=== PATIENT | female | born 1955 | race Native Hawaiian/Other Pacific Islander ===

== ENCOUNTER 2016-06-14 20:30 | Emergency (ER) | payer MEDICARE, OTHER ==
[2016-06-14] MEDS ORDERED: ACETAMINOPHEN 325 MG TABLET PO STA (21:36)
[2016-06-14] MEDS ORDERED: CEPHALEXIN 250 MG CAPSULE PO STA (21:37)
[2016-06-14] MEDS ORDERED: CEPHALEXIN 250 MG CAPSULE PO ONE (21:40)
[2016-06-14] MEDS ORDERED: ACETAMINOPHEN 325 MG TABLET PO ONE (21:41)
== END 2016-06-14 22:32 | disposition home or self-care (01) ==
DX: N10 Acute pyelonephritis (principal); R05 Cough; C56.9 Malignant neoplasm of unspecified ovary; I10 Essential (primary) hypertension; E11.42 Type 2 diabetes mellitus with diabetic polyneuropathy; Z79.4 Long term (current) use of insulin; Z79.82 Long term (current) use of aspirin
CPT/HCPCS: 36415; 71020; 80053; 81001; 83605; 83690; 85025; 99283; A9270

== ENCOUNTER 2016-07-16 07:10 | Outpatient (CLI) | payer MEDICARE, OTHER | END 2016-07-16 07:11 | disposition home or self-care (01) | DX: R10.11 Right upper quadrant pain (principal); Z85.43 Personal history of malignant neoplasm of ovary ==

== ENCOUNTER 2016-07-24 10:25 | Outpatient (CLI) | payer MEDICARE, OTHER ==
[2016-07-24] MEDS ORDERED: SODIUM CHLORIDE 0.9% IV ONE (14:28)
[2016-07-24] MEDS ORDERED: SINCALIDE IV ONE (14:28)
== END 2016-07-24 10:26 | disposition home or self-care (01) ==
DX: R10.11 Right upper quadrant pain (principal); Z85.43 Personal history of malignant neoplasm of ovary
CPT/HCPCS: 78227; A9537

== ENCOUNTER 2016-09-03 11:15 | Outpatient (CLI) | payer MEDICARE, OTHER ==
--- NOTE | 2016-09-05 06:47 | CONSULTATION NOTE ---
DATE OF CONSULTATION: 09/03/2016 00:00:00 REFERRING PROVIDER: Mayo Meyer MD, PhD TIME OF VISIT 11:15-12:15. TOPIC: Initial palliative care consult. Thank you, Dr. Meyer, for asking the Palliative Care Consult Service to be involved in the care of yo ur patient. I am asked to provide support, particularly around goals of care, end of life planning, a nd pain and symptom management. History obtained from patient, , and records. BRIEF HISTORY OF PRESENT ILLNESS: This is a 61-year-old woman who has a long history with ovarian can cer. She was first initially diagnosed in 1997. At that point in time, she underwent a total abdomina l hysterectomy and bilateral salpingo-oophorectomy. Over the subsequent years, she had multiple relap ses and recurrent chemotherapy with carboplatin and Taxol intermittently. She had her last round of c arbo/Taxol and Avastin in 09/2015 with progression. At this point in time, in 08/2015, she presented with peritoneal carcinomatosis, adenopathy, and lung nodules. She received Doxil/Avastin with x3 cycl es with progression, then topotecan/Avastin with stable disease, and then transitioned to maintenance olaparib from 06/18/2016, and most recently switched to niraparib on 07/24/2016. Today they have sto pped her treatments. She continues to have profound weakness, increasing pain, poor intake, intermittent and recurrent bon e marrow suppression, dizziness, tachycardia, and nausea. She has had greater than a 40-pound weight loss in the past few months and increasing left supraclavicular adenopathy and right axilla adenopath y. It was noted she has obvious disease progression. She does have some other chemotherapeutic option s but also the option to choose just to focus on comfort and no further active treatment. This is our first meeting to review goals of care. She is aware of her prognosis, particularly if choosing no fu rther treatment, is less than 6 months. SYMPTOM BURDEN: She does present with pain, particularly in the lower back area, a 6/10 to 8/10 with increasing standing. It is relieved with sitting and pressure relief. She reports she has no energy, is unable to eat, has early satiety. She has most recently been worked up for abdominal pain with neg ative for gallstones or pancreatitis. Her abdominal pain has since resolved and improved. She has no appetite. She has taste changes. She has dizziness. She has had recurrent UTIs, which has complicated the picture, as far as her feeling poorly. She does get short of breath with activity. She does perc eive herself as somewhat depressed and her quality of life as poor currently. PAST MEDICAL HISTORY Includes: 1. Diabetes. 2. Recurrent anemia secondary to bone marrow suppression from her chemotherapies. 3. Recurrent UTIs. MEDICATION ALLERGIES: LISINOPRIL CAUSES COUGH. CURRENT MEDICATIONS 1. Lantus 20 units. 2. Ascorbic acid 500 mg daily. 3. Aspirin 81 mg daily. 4. Atorvastatin 40 mg daily. 5. Calcium 1000 mg daily. 6. Docusate sodium 100 mg daily. 7. esomeprazole 20 mg daily. 8. Hydrocodone/acetaminophen 5/325 at 1 tab p.r.n. 9. Losartan 25 mg daily. 10. Metoclopramide 10 mg every 6 hours as needed for nausea and vomiting. 11. Multivitamin daily. 12. Ondansetron 8 mg every 8 hours as needed for nausea or vomiting. CODE STATUS: Patient does not have any advanced care directives. BRIEF SOCIAL HISTORY: Patient met her in the [facility]; they have been for 43 years and have been on [facility] since the . 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 She does have 1 son and 1 daughter who have been not been involved i n her care. She and her are not connected into any kind of spiritual community. She, though, has a history of Catholicism. They are quite isolated from family. Her family is back in the [facility]. She last visited there in 2014. She does have 11 brothers and sisters. Marital status: . Use of alcohol/tobacco: None. FAMILY HISTORY: She did have one brother of diabetes, unknown what her parents of, and no ca ncer diagnoses. PERFORMANCE STATUS: Patient has been limited by her escalating back pain. She is unable to stand for long periods of time. She does have a rolling chair that she likes the use in the house. She does fat igue quite easily. She is able to independently bathe, though her is assisting with most ADLs and IADLs. She did spend the majority of her time in bed or in the recliner. I would put her at a [facility] performance status of 50%. REVIEW OF SYSTEMS HEENT: Denies any trouble swallowing. CARDIOVASCULAR: Denies chest pain. Does have exertional dyspnea. RESPIRATORY: Does get short of breath with activity. GASTROINTESTINAL: Her bowels have been managing on a regular basis. She has poor appetite. She eats s mall amounts of food. She has early satiety. She does have intermittent nausea and taste changes. GENITOURINARY: She does have frequency, has had recurrent UTIs. MUSCULOSKELETAL: She has been losing weight with muscle weakness. INTEGUMENTARY: No pruritus. NEUROLOGIC: Denies memory issues; does present as alert and oriented. Her voice is quite soft. She do es have numbness and tingling as a residual of chemotherapy. PSYCHIATRIC: She is feeling quite sad, somewhat overwhelmed. ENDOCRINE: History of diabetes since 2006. HEMATOLOGIC/IMMUNOLOGIC: She has been requiring recurrent transfusions; she is receiving one currentl y. Her count on the 9th was 22.1. white count 7.3. Her creatinine is 1.4. GFR 38. Iron 18. TIBC 192, saturation 9, transferrin 137, ferritin 5142. LDH is 176. CA-125 is 108.9, this has increased from t he 15th from 80.2. PHYSICAL EXAMINATION GENERAL APPEARANCE: She does appear quite fatigued, difficulty making eye contact. Her voice is quite soft. She appears somewhat withdrawn. HEENT: Eyes normal on inspection. ENT: Mucous membranes without candidiasis. NECK: Trachea midline; does have swelling of the chest and axilla area. RESPIRATORY: Her breath sounds are clear. CARDIOVASCULAR: Her temperature is 36.7, pulse 101, blood pressure 145/90, respiratory rate 24. ABDOMEN: Quite rounded. Bowel tones distant. SKIN: She does have alopecia. EXTREMITIES: No lower extremity edema noted. PALLIATIVE CARE DISCUSSION/WHO IS PRESENT: Myself, the patient, and her , Duane. We did discuss the sadness they have over her ongoing decline, poor quality of life, and poor energy. Her i s much concerned over her pain and suffering, and the patient feels very bad about being a burden. Th e is able to express his understanding of the seriousness of the illness and that she has les s than 6 months to live, and is willing to have conversation regarding the continuum of care and supp ort. The patient remains quite hesitant. She has been with Dr. Meyer for over 12 years, is quite hope ful there may be something more to offer; but on the other hand is quite tired of feeling poorly and overwhelmed with her last few months of chemotherapy. They have no advanced directives in place; have not had any conversation. They are dependent on other , as far as support; are expressing their sadness and vulnerability, given the current situation. Time was spent just building rapport, particularly in the context of her recent bad news. Her strengt hs come from leaning on each other and are both appropriately tearful through the conversation. IMPRESSION: This is a ericka 61-year-old German woman with a long journey with her ovarian cancer. Now with disease that continues to progress despite treatment. She does present with high symptom bur den of back pain, fatigue, anemia, poor appetite, a 40-pound weight loss, and underlying depression a nd anxiety. She and her are just beginning to explore defining their goals of care and what i s most important in this current time. RECOMMENDATIONS/COUNSELING DONE 1. Back pain, most likely it is related to progressive disease. Patient hesitant to use her opioids. She does get some relief with it, though. Did discuss as far as improving her functional status and d ecreasing her fatigue to adequately treat her pain. I did suggest that we start with short-acting oxy codone 5 mg 1 tab 4 times a day, and we will titrate from there. I did ask them to keep a log balanci ng the effects of sedation and pain relief. I did encourage them to use her ondansetron if she gets a ny nausea. 2. Constipation risk with opioids. Patient does have intermittent constipation and hard stool. I did encourage to start with MiraLax 1 capful daily and add senna 1-2 tabs for a bowel movement every 24-4 8 hours. 3. Anorexia. I would be tempted to start patient on Decadron, though she is diabetic. She is coming o ff her oral chemotherapy with taste changes. We will focus on frequent small meals. She had disliked a supplement in the past because it gave her diarrhea. I did review using it in smaller amounts more frequently may improve her ability to tolerate this. I did encourage her to maximize fluids. She has been drinking lots of water. I encouraged her to drink calorie-laden fluids versus just plain water. 4. Advanced care planning. I did introduce continuum of care including palliative and hospice care re garding ongoing support, particularly if their focus is going to be on comfort. I did provide them wi th [facility] and a POLST for further conversation. I did set a followup time on Saturday. Time spent 60 minutes, with greater than 50% of this done in counseling and coordination of care, exp kaylah goals of care, high symptom burden, counseling and instruction on opioid use and safety, and a nticipatory guidance. JOB #: [id number] EXT JOB #:[id number]
== END 2016-09-03 11:16 | disposition home or self-care (01) ==
LOC: PC 11:15
PROVIDERS: ATTEND Nurse Practitioner Adult Health
DX: Z51.5 Encounter for palliative care (principal); M54.9 Dorsalgia, unspecified; K59.00 Constipation, unspecified; R63.0 Anorexia; C80.1 Malignant (primary) neoplasm, unspecified; C78.6 Secondary malignant neoplasm of retroperitoneum and peritoneum; R53.1 Weakness; R11.0 Nausea; R53.83 Other fatigue; R42 Dizziness and giddiness; D64.81 Anemia due to antineoplastic chemotherapy; T45.1X5D Adverse effect of antineoplastic and immunosuppressive drugs, subsequent encounter; Z87.440 Personal history of urinary (tract) infections
CPT/HCPCS: 99205

== ENCOUNTER 2016-09-07 09:19 | Outpatient (CLI) | payer MEDICARE, OTHER ==
--- NOTE | 2016-09-09 11:39 | CONSULTATION NOTE ---
DATE OF CONSULTATION: 09/07/2016 00:00:00 REQUESTING PROVIDER: Dr. Mayo Meyer. TIME OF VISIT: 9:15 to 10 a.m. TOPIC: Followup palliative care consult. Thank you, Dr. Meyer, for asking the palliative care consult service to be involved in the care of yo ur patient. I am asked to provide support, particularly around goals of care, end of life planning, p ain and symptom management. BRIEF HISTORY OF PRESENT ILLNESS: This is a 61-year-old woman with longstanding ovarian cancer initia lly diagnosed in 1997. At that point in time, she underwent a total abdominal hysterectomy and bilate ral salpingo-oophorectomy. She currently is on a break from chemotherapy. She had been having pancyto penia, increased weakness, and progressive disease. She is much improved from earlier in the week. She has received 2 units of packed red blood cells, is receiving an iron transfusion during her visit. Her pain is currently controlled on her current joann men, which is oxycodone 5 mg 4 times a day. She has not had any undue side effects as far as sedation and has had good pain relief to the point where she is able to stand and walk better and reports 0/1 0 pain. She does have poor activity tolerance. She continues with nausea in the morning, but uses ond ansetron. Does not need it through the day. She did have one episode though of vomiting, but attribut es it to her food choice of corned beef. She has not had any further abdominal pain. She is currently on antibiotic for urinary tract infection, so has had some intermittent diarrhea and loose stools, s o has not needed to use the MiraLax at this point in time. MEDICATIONS: She has had her Lantus decreased to 10 units. CODE STATUS: THE PATIENT REMAINS A FULL CODE. PLEASE SEE PALLIATIVE CARE DISCUSSION. BRIEF SOCIAL HISTORY: She and her have been for 43 years. He does tend to be the one that interprets her medical information, as well as medical decision making. She is quite differentia l to this and this is fine with her. She is more than willing though to engage in conversation and an swer questions for me today. She and her are not connected to any spiritual community, have m inimal family support. Her family is back in the [facility] where she has 11 brothers and sisters. PERFORMANCE STATUS: The patient has been limited by escalating back pain. She is not able to ambulate and sits to cook. She still fatigues quite easily. She is able to independently bathe. I would put h er actually at a palliative care performance status of improved to 60%. REVIEW OF SYSTEMS HEENT: The patient denies trouble swallowing. CARDIOVASCULAR: Denies chest pain. RESPIRATORY: Shortness of breath with activity. GASTROINTESTINAL: Continues with poor appetite, though has had some improvement in intake. She report s she has gained 2 pounds. She has had one episode of vomiting. She has had some diarrhea with her an tibiotics. GENITOURINARY: She is currently on antibiotic for a UTI. She denies incontinence, but does have frequ ency. MUSCULOSKELETAL: She is weak. INTEGUMENTARY: No pruritus. NEUROLOGIC: Her voice is quite soft. PSYCHIATRIC: She is in a better mood today, a little bit more upbeat. She is feeling better. Her pain is controlled. ENDOCRINE: She reports her blood sugar yesterday was 94, this morning 154, but she had lasagna last n ight. HEMATOLOGIC/IMMUNOLOGIC: She is feeling better after her blood transfusion. PHYSICAL EXAMINATION GENERAL APPEARANCE: She does appear a little bit more energetic and she is making eye contact with me today. Her voice is soft. HEENT: Eyes are normal on inspection. Mucous membranes are without candidiasis. NECK: She does have a palpable, probably 3-4 cm node just below her left neck area. It is nontender t o palpation. Some swelling under her left axilla. RESPIRATORY: Her breath sounds are diminished, but clear. CARDIOVASCULAR: Her temperature is 36.9. She remains tachycardic at 106, blood pressure 116/54. Her O 2 saturations are at 99%. SKIN: She is wearing a cap for alopecia. EXTREMITIES: No lower extremity edema. She is moving much easier today. PALLIATIVE CARE DISCUSSION: Who is present, myself, the patient, and her , Duane. They have not done any advanced care planning and find it very difficult to talk about this topic. We did discuss at the minimum to complete a durable power of medical research attorney and is defaulting most often to Duane hilliard s far as the decision maker, but if he were not available, will list her daughter. In discussing what is most important to her, she is quite happy to have a break for a few weeks. She is actually planni ng to continue with chemotherapy. What worries her most is leaving Duane behind. She has some insight to the seriousness of her illness and does understand that Dr. Meyer talked to her about there are mo re limited options, but she still perceives that she would continue with treatment at this point. I i ntroduce the concept of weighing benefits and burdens that sometimes the burden of chemotherapy is hi gher than the burden of disease. She is feeling much better off her chemotherapy. She is getting her taste back. She has had transfusions. Her energy is back and now we have her pain controlled. We did discuss end of life options at the point that she no longer is able to have chemotherapy or chooses n ot to have chemotherapy around the role of hospice as far as support. She does want to be comfortable at end of life. We talked about dying at home and what that might look like. This is a very difficul t conversation for her, both given culturally and religiously. In talking to Duane and Dana about CODE STATUS, at this point in time they are quite conflicted. Duane' s experience as a pediatric oncologist, first aid, perceives resuscitation as a valid intervention. Did scar gonsalez explore, just given the seriousness of the illness and decision making regarding reversible proc esses versus not reversible, and the decisions they might be facing in the future, what the role of Beverly PEREZ is. At this point in time, she would be a FULL CODE, FULL TREATMENT, but are open to continuing to have this conversation. We did introduce [facility], though given who she is culturally, this is quite complicated for her. Did discuss that what we would do is continue talking about benefits and b urdens as they come up, recognizing that what is most important is that she is kept comfortable and t reated with respect. Duane does admit to just the complexity of all of this, and this is their first c onversation about any advanced directive, so we will continue this in the future as allowed. The hannah ent was finding it quite easy and willing to talk to me in the future. I did leave it open for any qu estions. IMPRESSION: This is a ericka 61-year-old woman, Pakistani, with a long journey with ovarian cancer wit h progressive disease. Her symptom burden has improved today with improvement of her back pain and fa tigue. She is eating a little bit better, does seem a little bit brighter. She and her are ju st beginning to explore and define their goals of care. At this point in time, she is thankful to hav e a break from treatment, but appears that she may continue on. RECOMMENDATIONS/COUNSELING DONE 1. Back pain, most likely of neoplastic origin. The patient is taking her oxycodone as instructed 4 t imes a day with good relief. She is tolerating it without side effects. We did discuss if she needed increased dosing, to go ahead and take 2 tabs at a time. They are keeping a log. 2. Constipation. She currently is having loose stools, most likely attributed to her antibiotics curr ently. We did review though after antibiotics are done, to be able to still monitor and institute a b owel program of MiraLax and senna for breakthrough constipation. 3. Anorexia. It does appear that she is improved with taste changes and some improvement in eating. S he has had a 2 pound weight gain, certainly this could be ascites as well though, but she does appear to be doing a little bit better and her fluid status is improved. 4. Advanced care planning. Did introduce the POLST form. At this point in time she wants to be a FULL CODE, FULL TREATMENT. Introduce advanced care planning in the future, the continuum that includes ho spice care, as well as needing a durable power of medical research attorney on record. TIME SPENT: 45 minutes with greater than 50% of this done in counseling and coordination of care, exp kaylah goals of care, addressing her symptom burden and anticipatory guidance. JOB #: [id number] EXT JOB #:[id number]
== END 2016-09-07 09:20 | disposition home or self-care (01) ==
LOC: PC 09:19
PROVIDERS: ATTEND Nurse Practitioner Adult Health
DX: Z51.5 Encounter for palliative care (principal); M54.9 Dorsalgia, unspecified; R53.83 Other fatigue; R53.1 Weakness; K59.00 Constipation, unspecified; R63.0 Anorexia; C56.9 Malignant neoplasm of unspecified ovary; N39.0 Urinary tract infection, site not specified; D64.9 Anemia, unspecified; K52.1 Toxic gastroenteritis and colitis; T36.95XA Adverse effect of unspecified systemic antibiotic, initial encounter
CPT/HCPCS: 99215

== ENCOUNTER 2016-09-14 08:57 | Outpatient (CLI) | payer MEDICARE, OTHER ==
--- NOTE | 2016-09-17 07:05 | CONSULTATION NOTE ---
DATE OF CONSULTATION: 09/14/2016 00:00:00 REQUESTING PROVIDER: Mayo Meyer MD, PhD TIME OF VISIT: 9 to 9:45. TOPIC: Followup palliative care consult. Thank you, Dr. Meyer, for asking the Palliative Care Consult Service to be involved in care of your patient. I am asked to provide support for pain and symptom management, and end-of-life and transition care planning. BRIEF HISTORY OF PRESENT ILLNESS: This is a 61-year-old woman, with longstanding ovarian cancer who is currently on a break from chemotherapy secondary to having pancytopenia, increased weakness, and progressive disease. She has received 2 units of red blood cells and is now receiving weekly iron transfusions. She reports her pain continues to be controlled on her current regimen, which is oxycodone 5 mg 3-4 times a day. She has tolerated this well. She reports her pain today at a 1/10. She does have fatigue that she reports as a 5/10, as well as drowsiness and tiredness at 5/10. She denies any further nausea. Her most pressing symptoms are a lack of appetite at 7/10, and shortness of breath at 7/10. She complains today of continued symptoms of a urinary tract infection with pain and burning and difficulty with some urinary retention and emptying her bladder. ALLERGIES: LISINOPRIL. CURRENT MEDICATION LIST Includes: 1. Lantus 10 units. 2. Ascorbic acid 500 mg daily. 3. Aspirin 81 mg daily. 4. Atorvastatin 40 mg daily. 5. Calcium 1000 mg daily. 6. Docusate sodium 100 mg daily. 7. MiraLax 17 grams half cap to full cap daily. 8. Esomeprazole 20 mg daily. 9. Oxycodone 5 mg q.i.d. 10. Losartan 25 mg daily. 11. Metoclopramide 10 mg every 6 hours as needed for nausea and vomiting. 12. Multivitamin daily. 13. Ondansetron 8 mg every 8 hours as needed for nausea and vomiting. CODE STATUS: The patient remains a FULL CODE. Please see palliative care discussion. BRIEF SOCIAL HISTORY: She and her have been for 43 years. She is the one who provides most of her advocacy and oversight for medical information, as well as medical decision making; she is quite deferential to this, and this is fine with her. She is Denominational but not connected to any spiritual community here. Her family is back in the [facility], which she is in contact with frequently. She does have 2 children, but it does not appear they are actively involved in her care. PERFORMANCE STATUS: The patient has been a bit better with her back pain. She has been cooking a little bit more, though she still continues to fatigue easily. She is able to independently bathe. I would put her at a performance status of 60%. REVIEW OF SYSTEMS All are negative except for: RESPIRATORY: She reports shortness of breath with activity but denies it at rest. GASTROINTESTINAL: She continues with poor appetite and weight loss. GENITOURINARY: She had been on an antibiotic for a UTI. She denies incontinence but is having some trouble with frequency and difficulty with starting a stream. ENDOCRINE: She reports her blood sugars are within normal range for her. HEMATOLOGIC/IMMUNOLOGIC: She continues getting iron transfusions. PHYSICAL EXAMINATION GENERAL APPEARANCE: She does appear a little bit more relaxed with me today, making good eye contact. Her voice is soft. HEENT: Eyes are normal on inspection. Mucous membranes are moist without candidiasis. NECK: She does have a palpable 3 to 4 cm node in her left neck area, it is nontender, and some swelling under her left axilla. RESPIRATORY: Her breath sounds are diminished but clear. CARDIOVASCULAR: Her pulse is 98, blood pressure 129/60, respiratory rate at 16. SKIN: Somewhat dry. EXTREMITIES: No lower extremity edema. She is moving a little easier today. PALLIATIVE CARE DISCUSSION/WHO IS PRESENT: Myself, the patient, and her , Duane. They are willing to do a durable power of medical compliance attorney. At this point in time, they do not have any witnesses and did not want to take it to the bank so "that they would know their business." I will make contact with Sara Jermaine connelly, to see if she can help them assign that next Saturday. The focus today for most of their goals is to try and see how she can eat better. We did discuss strategies at length, but also suggested medications, and we will go ahead and start her on a Decadron. I did follow up on their concerns about plans and did provide them the resource [facility] , as well as discussion on how to weigh benefits and burdens of following through and making pre-plans. They continue to be quite reticent to visit, though recognizing that decision is facing them in the future. We will continue to revisit this as allowed by both the patient and the . It is quite complex, given her culture background and her long journey with her ovarian cancer. IMPRESSION: This is a ericka 61-year-old Filipina woman with a long journey with ovarian cancer, now presenting with progressive disease. She does present with symptoms of a urinary tract infection again; we will get a specimen. She is doing better with her pain and fatigue, though intake and appetite remain problematic. She and her are continuing to explore and define their goals of care. RECOMMENDATIONS/COUNSELING DONE 1. Back pain, most likely of neoplastic origin. She is taking oxycodone up to 4 times a day at 5 mg with good relief, is tolerating this without side effects. If needed, she can go ahead and take 2 tabs at a time; they are keeping a log. 2. Constipation. She is using her MiraLax and senna appropriately. 3. Anorexia. They are interested in trialing Decadron 4 mg tabs 1 tab daily with food. Instructions were given how to use this. 4. Symptoms of urinary tract infection. She has recently been treated. We will try to get a specimen with a C and S, to make sure we are treating the right organism. 5. Continue advance care planning. Continue to discuss what is most important to them, as well as follow up on DPOA and POLST form in the future. Time spent 45 minutes with 50% of this done in counseling regarding weighing benefits and burdens of steroids use; she is instructed to watch her blood sugars, also instructed on strategies on how to increase her intake, as well as continued management of her pain. ADDENDUM: Patient urine not strongly positive and no C &S, when followed up with patient today reports her symptoms are better, no burning, difficulty voiding, or further concerns. No fever, chills, appetite she feels improved "hungry all the time", does not feel it is much better. Agreed will order Bactrim DS BID for 5 days, patient to start if symptoms recur. JOB #: [id number] EXT JOB #:[id number] VIKY
== END 2016-09-14 08:58 | disposition home or self-care (01) ==
LOC: PC 08:57
PROVIDERS: ATTEND Nurse Practitioner Adult Health
DX: Z51.5 Encounter for palliative care (principal); M54.9 Dorsalgia, unspecified; Z79.891 Long term (current) use of opiate analgesic; K59.00 Constipation, unspecified; R63.0 Anorexia; R39.9 Unspecified symptoms and signs involving the genitourinary system; D64.9 Anemia, unspecified; R53.83 Other fatigue; R06.02 Shortness of breath; C56.9 Malignant neoplasm of unspecified ovary; Z79.899 Other long term (current) drug therapy
CPT/HCPCS: 99215

== ENCOUNTER 2016-10-19 08:15 | Outpatient (CLI) | payer MEDICARE, OTHER | END 2016-10-19 08:16 | disposition home or self-care (01) | LOC: PC 08:15 | PROVIDERS: ATTEND Nurse Practitioner Adult Health | DX: Z53.9 Procedure and treatment not carried out, unspecified reason (principal) ==

== ENCOUNTER 2016-10-19 08:45 | Outpatient (CLI) | payer MEDICARE, OTHER ==
--- NOTE | 2016-10-19 12:34 | PROVIDER PROGRESS NOTE ---
Palliative Care Follow Up - Referral Referring Provider: Dr. Meyer Time of Visit: [id number] [place] [facility] [place] Reason: Fatigue - Information Sources History obtained from: Patient, Family ( Duane) Exam limitations: Clinical condition (patient with some STM issues, was very confused last night) - History of Present Illness Update Brief HPI Update: This is a ericka 61 year old [place] woamn wiht advanced ovarian cancer with peritoneal carcinomatosis, adenopathy, and lung mets. She has had chemotherapy on and off after surgery for her original dx in 1997. Currently off chemotherapy , and getting hyperfractionated treatment to an enlarging supraclavicular mass, is due for her last treatment today. She has been having progressive back pain, reports "unable to radiate area as too close to kidneys and her labs aren't good". called earlier in week, patient had poor intake, getting weaker, and not drinking enough, was set to see radiation oncologist, had recommended go to ED on way up or down to [facility]. Patient has just continued to worsen, today patient reports severe shortness of breath 10/10, fatigue 9/10, dizzyness with up, and shakey when weight bears. Appetite poor, had responded to decadron at first, did not get refilled no out. Blood sugars had been low, so no longer taking insulin, running 70. Was confused last night, had to be reorientated this am, exhausted and distessed. Arranging for fluids, when labs came back with Hgb 6.8, Hct 21.6; K 5.3; BUN 59; GFR 12. Arranged for 2 units PRBCs, call to radiation to delay tx, does need to go today because of treatment plan; will stay in communication from clinic. Social History - Living Situation Living arrangement: At home Living Situation: With spouse/s.o. Support System: Duane has been managing pretty much by himself, have some friends currently visiting Medications/Allergies - Medications Home Medications: Ambulatory Orders Medication Instructions Recorded Confirmed Aspirin [Aspir 81] 81 mg PO DAILY 08/08/12 10/19/16 Docusate Sodium [Stool Softener] 100 mg PO DAILY 08/08/12 10/19/16 Esomeprazole Magnesium [Nexium] 20 mg PO BID 08/08/12 10/19/16 Losartan [Cozaar] 25 mg PO ONCE 04/26/14 10/19/16 Ondansetron HCl [Zofran] 8 mg PO Q8H PRN 08/05/15 10/19/16 Dexamethasone [Decadron] 4 mg PO DAILY 10/19/16 10/19/16 Fentanyl [Fentanyl 12mcg patch] 12 mcg TOP 10/19/16 Polyethylene Glycol 3350 [Miralax] 17 gm PO DAILY PRN 10/19/16 10/19/16 Senna [Senokot] 1 - 2 tab PO DAILY PRN 10/19/16 10/19/16 oxyCODONE [Roxicodone] 5 - 10 mg PO Q4HR 10/19/16 10/19/16 - Allergies Allergies/Adverse Reactions: Allergies Allergy/AdvReac Type Severity Reaction Status Date / Time No Known Drug Allergies Allergy Verified 08/08/12 12:02 Review of Systems - Constitutional Constitutional: reports: Fatigue, Malaise, Weakness, Poor appetite, Weight loss. denies: Fever - Eyes Eyes: reports: Blurred vision - Ears, Nose & Throat Ears, Nose & Throat: reports: Vertigo. denies: Ear pain - Cardiovascular Cariovascular: reports: Edema, Lightheadedness, Exertional dyspnea, Decr. exercise tolerance, Orthopnea - Respiratory Respiratory: reports: SOB at rest, SOB with exertion - Gastrointestinal Gastrointestinal: reports: Reflux/heartburn, Bloating, Poor appetite (early satiety, has not been eating or drinking well for several days). denies: Constipation, Diarrhea, Black stools, Bloody stools - Genitourinary Genitourinary: reports: Frequency. denies: Dysuria, Urgency - Musculoskeletal Musculoskeletal: reports: Back pain, Muscle weakness - Integumentary Integumentary: reports: Dryness, Other (swelling in left clavicular area, no signs of radiation damage other than color changes, tender to touch some) - Neurological Neurological: reports: General weakness, Dizziness, Memory problems, Abnormal gait (weak and shakey when walking), Incoordination - Psychiatric Psychiatric: reports: Depression, Anxiety - Endocrine Endocrine: reports: Other (low blood sugars, stopped insulin) - Hematologic/Lymphatic Hematologic/Lymphatic: reports: Anemia, Recurrent infections (utis) - All Other Systems All Other Systems: reports: Reviewed and negative Physical Examination - Vital Signs Temperature: 36.9 C Pulse Rate: 109 Respiratory Rate: 20 Blood Pressure: 112/66 - Physical Exam General Appearance: positive: Mild distress Eyes Bilateral: positive: Other (slight icterus noted) ENT: positive: Dry mucous membranes. negative: Oral lesions Neck: positive: Trachea midline, Lymphadenopathy (L) (neck mass left side with hard demarcated borders, slightly tender) Respiratory: positive: Other (diminished bases). negative: Wheezes, Rales, Rhonchi Cardiovascular: positive: Regular rate & rhythm Abdomen: positive: Nml bowel sounds, Tenderness (mild and generalized) Skin: positive: Pallor, Dryness Extremities: positive: Pedal edema (lymphadema soft LE up to mid calf) Neurologic/Psychiatric: positive: Weakness, Depressed mood/affect, Other ( patient admits to confusion, difficulty tracking able to recall had trouble last night, admits to feeling whoozey today) Palliative Care - POLST Patient has POLST: No POLST Status: Full Code Pain: Pain unchanged, Location (midthoracic back area, worsening with laying flat with radiation, standing, using oxycodone 2 tabs about 4 x a day, feeling it is persistent. Forgets to take or forgotten has taken mediccation. Currently with some discomfort with sitting, took 2 tabs) Drowsiness: Moderate (4-6) (Fatigues rapidly after radiation, has had difficulty with sleep patterns) Nausea: None Anxiety: Moderate (4-6) (worried about the "what next" and all the changes as well as her ) Dyspnea: Severe (7-10) (Worsened over the week) Anorexia: Severe (7-10) (Had not refilled Decadron, had forgotten), Weight loss Insomnia: Sleeps poorly Constipation: Yes, Opoid induced, Managed Feelings of wellbeing/Perceived Quality of Life: Worsening Performance Status: Patient worsening functional status related to weakness, shakiness, and dyspnea. Poor tolerance of activity, attending to all ADLs. PPS 40% - Palliative Care Discussion: Patient declining, had left the appointment, asked her what she worried about "everything" things getting worse, most concerned not about herself but her , distressed he is crying all the time. She denies being fearful, admits things have been very hard. feeling overwhelmed, medications somewhat unclear what had been using etc. will take over and fill mediset. Has some family coming, not clear if will be of support. Had reviewed on phone about concerns getting worse as disease progresses needing more support. Results - Lab Results Lab results reviewed: Yes Impression and Recommendations - Palliative Care Impression: This is a ericka 61 year old Filip[place] woman with metastatic and progressive ovarian cancer with increasing symptom burden anorexia and pain, functional decline, and acute symptoms of dyspnea, confusion, and dizzyness related to anemia and dehydration. Currently finishing radiation, goal to be able to finish today after addressing acute issues. Recommendations/Counseling Done: 1. Pain of neoplastic origin, back pain. Will transition to Fentanyl 12 mcg every 72 hours to improve compliance and use oxycodone for BTP, teaching done with and patient, able to verbalized back plan. Written list given. Counseling on opioid saftey and disposal. 2. Anorexia, had gotten positive response from the decadron, unclear why did not get refilled. Reviewed goal and aim, rewrote new RX. Patient currently with ongoing weight loss and presents with dehydration and poor intake for several days. 3. Dehydration. Will have get NS until blood starts. Reviewed need to push fluids. 4. Anemia, very symptomatic, had gotten response last time, hoping to feel better. Ordered 2 units for acute symptoms. 5. Constipation, reports using medications at times with bowel movement every other day. 6. Advanced care planning. Will continue to follow journey, if not improvement of symptoms with transfusions and ongoing decline, revisit hospice support in goals of care. Time Spent: Time spent 60 minutes with greater than 50% spent on counseling for pain/ anorexia/opioid safety and coordination of care regarding fluids/blood/f/up with radiation.
== END 2016-10-19 08:46 | disposition home or self-care (01) ==
LOC: PC 08:45
PROVIDERS: ATTEND Nurse Practitioner Adult Health
DX: Z51.5 Encounter for palliative care (principal); R53.83 Other fatigue; G89.3 Neoplasm related pain (acute) (chronic); C56.9 Malignant neoplasm of unspecified ovary; C78.6 Secondary malignant neoplasm of retroperitoneum and peritoneum; C77.9 Secondary and unspecified malignant neoplasm of lymph node, unspecified; C34.90 Malignant neoplasm of unspecified part of unspecified bronchus or lung; F41.9 Anxiety disorder, unspecified; R06.00 Dyspnea, unspecified; R63.0 Anorexia; G47.00 Insomnia, unspecified; R41.0 Disorientation, unspecified; R42 Dizziness and giddiness; D64.9 Anemia, unspecified; E86.0 Dehydration; K59.00 Constipation, unspecified; Z79.891 Long term (current) use of opiate analgesic
CPT/HCPCS: 99215